=== PATIENT | female | born 2000 | race Two or more races ===

== ENCOUNTER 2024-04-15 15:45 | Inpatient (IN) | payer MEDICAID, SELFPAY ==
[2024-04-15] VITALS (9 sets, daily range): BP systolic 0–139; BP diastolic 0–75; PULSE 58–127; RESP 21; TEMP 36.6; O2SAT 98; BMI 25.4
[2024-04-15] MEDS: RINGERS LACTATED 1000 ML 1,000 ML 125 ML IV (16:10)
[2024-04-15] MEDS: MINERAL OIL 30 ML UDC TOP (16:22)
[2024-04-15] MEDS: LIDOCAINE HCL 1% 20 ML VIAL INFL (16:30)
[2024-04-15 16:32] LABS: Basophils % (Auto) 0 % (0-2.5); Eosinophils % (Auto) 0 % (0-10); Hematocrit 33.3 % (36.0-46.0); Immature Granulocytes % (Auto) 1 % (0-0); Immature Granulocytes Auto 0.06 Thou/mm3 (0.00-0.00); Lymphocytes # (Auto) 2.9 Thou/mm3 (1.0-4.8); Lymphocytes % (Auto) 23 % (10-50); Mean Corpuscular Hemoglobin 25.6 pg (25.0-35.0); Mean Corpuscular Volume 78 fL (80-100); Monocytes # (Auto) 0.7 Thou/mm3 (0.0-0.8); Monocytes % (Auto) 6 % (0-12); Neutrophils # (Auto) 8.8 Thou/mm3 (1.8-7.7); Neutrophils % (Auto) 70 % (37-80); Nucleated Red Blood Cell % 0 /100 WBC (0); Platelet Count 310 Thou/mm3 (140-440); RDW Standard Deviation 38.5 fL (36.4-46.3); Red Blood Count 4.29 Miln/mm3 (4.00-5.20); White Blood Count 12.5 Thou/mm3 (3.6-11.0)
[2024-04-15] MEDS: fentaNYL CIT INJ 50 mCg/ML AMP 2ML 100 MCG IV (16:33)
[2024-04-15] MEDS: OXYTOCIN in NS 20 units 20 UNIT/1,000 ML BAG 125 UNIT IV (16:35)
[2024-04-15] MEDS: BENZO/LANO/ALOE (Dermoplast) 60 GM CAN 1 SPRAY TOP (16:36)
--- NOTE | 2024-04-15 16:40 | PD.LDHP ---
Documentation for date of: 04/15/24 OB Labor/Induct. HPI History of Present Illness Chief complaint: 23 y/o 39w 3d presents to L&D in active labor at 7 cm : 2 Para: 1 Term pregnancies: 1 pregnancies: 1 Living children: 1 History of Abortions: Spontaneous and Elective: 0 History of Vaginal deliveries: 0 History of sections: No History of : No BLAYNE: 04/19/24 Gestational Age (weeks): 39 Gestational Age (days): 3 History of present illness: 23 y/o 39w 3d presents to L&D in active labor at 7/90/0 vertex, membranes intact, category 1 tracing, GBS is neg. has been uncomplicated. EFW 2900g Pt has a hx of nvdx1 History of Present Dating criteria: LMP confirmed by 1st trimester US Adequate Care: Yes Ultrasounds: normal 1st trimester US and normal mid trimester US Obstetrical complications: none Medical complications: none Labs Maternal Blood Type: A Pos Labs: Positive: Rubella Titre, Negative: RPR, Hepatitis B, HIV, Chlamydia, Gonorrhea and Group Beta Strep and Unknown: Covid-19 Review of Systems Review of Systems Systems Reviewed: All systems reviewed, normal except as documented Past Medical History Surgical History SURGICAL: Negative Section Meds Home Medications and Allergies Home Medications ?Medication ?Instructions ?Recorded ?Confirmed ?Type vit no.95-ferrous See Rx Instructions .Route .COMPLEX 04/15/24 04/15/24 History fumarate 28 mg-folic acid 800 mcg tablet () Allergies Allergy/AdvReac Type Severity Reaction Status Date / Time No Known Allergies Allergy Verified 04/15/24 16:50 OB Exam Physical Exam Vital signs: Pulse BP 93 111/53 L 04/15/24 16:40 04/15/24 16:40 Constitutional Constitutional: severe distress (Secondary to painful contractions) Routine HEENT Exam Head: Present normocephalic and atraumatic Eye: Present EOMI, PERRL and normal accommodation ENT: Present mucous membranes moist Routine Neck Exam Neck: Present supple, full ROM and trachea midline Routine Respiratory Exam Respiratory: Absent respiratory distress Routine Cardiovascular Exam Cardiovascular: Present RRR Routine Abdominal Exam Abdominal: Present soft Comments: Gravid uterus EFW 2900 g Routine Exam External: Present normal urethra appearance; Absent lesions Detailed Labor and Delivery Exam Dilation (cm): 7 Effacement (%): 90 Cervix position: mid station: 0 Consistency: soft Presentation: Vertex Membranes: intact Baseline heart rate: 140 monitor accelerations: 15x15 monitor decelerations: None penitentiary variability: Moderate (11-25) Contraction frequency (min): 2-3 Contraction duration (sec): 40-60 Contraction intensity: Strong Routine Extremities Exam Extremities: Present full ROM Routine Back/Spine/Pelvis Exam Back/Spine: Present full ROM Routine Skin Exam Skin: Present intact, dry and warm Routine Neurological Exam Neurological: Present alert, oriented X3 and CN II-XII intact Routine Psychiatric Exam Psychiatric: Present normal affect and normal thought process OB Results Labs 04/15/24 16:10 Labs: Short CBC 04/15/24 Range/Units 16:10 WBC 12.5 H (3.6-11.0) Thou/mm3 Hgb 11.0 L (12.0-16.0) g/dL Hct 33.3 L (36.0-46.0) % Plt Count 310 (140-440) Thou/mm3 OB Assessment & Plan Assessment and Plan (1) Normal labor: Status: Acute (2) with 39 completed weeks gestation: Status: Acute Additional Plan Induction method: none Plan: consult MD bah Additional Plan Comment: Routine admit orders Anticipate
--- NOTE | 2024-04-15 16:45 | OBDSUM_ITS ---
Data ([facility]) Data Hx Section: No Maternal Blood Type: B Pos Rubella Titre: Positive RPR: Non-reactive Labs: Negative: RPR, Hepatitis B, HIV, Chlamydia, Gonorrhea and Group Beta Strep and Unknown: Herpes Type 1 and Herpes Type 2 : 2 Para: 1 Term: 1 : 0 : 0 Delivery Data ([facility]) Labor Data Stimulated/Augmented: No Induction: No Method: AROM ROM Date: 04/15/24 ROM Time: 16:20 Rupture Type: AROM Amniotic Fluid: Clear Delivery Data EDC: 04/19/24 EDC calculated by:: LMP/early US confirmation Labor Onset Stage 1 Date: 04/15/24 Labor Onset Stage 1 Time: 10:00 Labor Onset Stage 2 Date: 04/15/24 Labor Onset Stage 2 Time: 16:13 Delivery Date: 04/15/24 Delivery Time: 16:27 Gestational age (weeks): 39 Gestational age (days): 3 Placenta Delivery Date: 04/15/24 Placenta Delivery Time: 16:29 Delivered by: Ling Kaur Delivery nurse: Lizzie Easton Brim [employer] Sewing Machine Operator at delivery: No Support person(s) at delivery: FOB Delivery Method Delivery: Vaginal Delivery Type: Spontaneous Presentation: Vertex Anesthesia Type Primary Anesthesia: None Delivery Room Medications Other Intrapartum Medications: No Post Delivery Medications N/A: No Placenta Placenta Delivery: Spontaneous Placenta Cultures Obtained: No Placenta Sent for Examination: No Cord Sample: Cord Blood Obtained Episiotomy Episiotomy: None Lacerations #1: Periurethral: Above the urethra Perineal repair Sutures used for repair: 4.0 Vicryl (SH) EBL Estimated blood loss (ml): 200 Umbilical Cord Umbilical Vessels: 3 Nuchal Cord: Not Applicable Body Cord: x1 Additional Procedures Patient came in at 7 cm in active labor and progressing very quickly to complete AROM performed at bedside and patient had an of a viable female infant. 's anterior shoulder delivered with gentle downward traction subsequent deliver the posterior shoulder and the body without complications. Infant placed on mother's abdomen. Vigorous cry upon delivery. Cord was clamped. Cut by CNM. Cord blood obtained. Three-vessel cord noted. Placenta expelled spontaneously and intact. Patient sustained a small periurethral laceration. Repaired using a 4-0 Vicryl on an SH suture. Perineum intact. Sponge and needle count correct. Excellent hemostasis achieved after vigorous fundal massage and removal of clots from the posterior fornix. EBL is 200. Mother and baby stable, skin to skin and bonding in LDR. [place] Data ([facility]) Data Infant Gender: Female Weight Grams: 2950 1 Minute Total: 9 5 Minute Total: 9
[2024-04-15 17:00] LABS: Syphilis Nonreactive (Nonreactive)
[2024-04-15 22:03] LABS: Basophils % (Auto) 0 % (0-2.5); Eosinophils % (Auto) 0 % (0-10); Immature Granulocytes % (Auto) 0 % (0-0); Immature Granulocytes Auto 0.06 Thou/mm3 (0.00-0.00); Lymphocytes # (Auto) 2.1 Thou/mm3 (1.0-4.8); Lymphocytes % (Auto) 14 % (10-50); Mean Corpuscular HGB Conc 34.2 g/dl (31.0-37.0); Mean Corpuscular Hemoglobin 26.5 pg (25.0-35.0); Mean Corpuscular Volume 77 fL (80-100); Monocytes # (Auto) 0.9 Thou/mm3 (0.0-0.8); Monocytes % (Auto) 6 % (0-12); Neutrophils # (Auto) 11.5 Thou/mm3 (1.8-7.7); Neutrophils % (Auto) 79 % (37-80); Nucleated Red Blood Cell % 0 /100 WBC (0); Platelet Count 257 Thou/mm3 (140-440); RDW Standard Deviation 39.2 fL (36.4-46.3); Red Blood Count 3.36 Miln/mm3 (4.00-5.20); White Blood Count 14.7 Thou/mm3 (3.6-11.0)
[2024-04-15 22:04] LABS: Hemoglobin 8.9 g/dL (12.0-16.0)
[2024-04-16] VITALS: BP 99/64; PULSE 80; RESP 21; TEMP 36.9; O2SAT 97
[2024-04-16 04:57] VITALS: BP 97/69; PULSE 71; RESP 16; TEMP 36.7; O2SAT 99
--- NOTE | 2024-04-16 06:57 | PD.LDDS ---
DS: Providers Provider Date of admission: 04/15/24 16:38 Primary care physician: Physician No Primary/Family Admitting Provider: Ling Kaur CNM Attending Provider on Admission: Ling Kaur CNM Consults: 04/15/24 16:52 Referral Routine Comment: Attending Provider on DC: Ling Kaur CNM Discharging Provider: Ling Kaur CNM Anticipated date of discharge: 04/16/24 DS: Diagnosis Discharge Diagnosis (1) Normal spontaneous vaginal delivery: Status: Acute (2) Encounter for care of lactating mother: Status: Acute (3) with 39 completed weeks gestation: Status: Acute (4) Normal labor: Status: Acute Problem List Completed Was Problem List Reviewed/Reconciled?: Yes Summary/Hosp Course Brief History: 23 y/o 39w 3d presents to L&D in active labor at 7/90/0 vertex, membranes intact, category 1 tracing, GBS is neg. has been uncomplicated. EFW 2900g Pt has a hx of nvdx1. 04/15/24: Patient came in at 7 cm in active labor and progressing very quickly to complete AROM performed at bedside and patient had an of a viable female infant. 's anterior shoulder delivered with gentle downward traction subsequent deliver the posterior shoulder and the body without complications. placed on mother's abdomen. Vigorous cry upon delivery. Cord was clamped. Cut by JORDI. Cord blood obtained. Three-vessel cord noted. Placenta expelled spontaneously and intact. Patient sustained a small periurethral laceration. Repaired using a 4-0 Vicryl on an SH suture. Perineum intact. Sponge and needle count correct. Excellent hemostasis achieved after vigorous fundal massage and removal of clots from the posterior fornix. EBL is 200. Mother and baby stable, skin to skin and bonding in LDR. 04/16/24: day 1 patient is stable and afebrile. Doing well and . Breast-feeding . No complaints. Uterus is nontender fundus firm minimal lochia. Discharge instructions given. Patient to follow-up with Ling Kuar CNM in 3 weeks Peripartum Data Delivery Method: Normal Vaginal Delivery Episiotomy Description: None Laceration Description: yes and see Delivery Summary complications: none [place] 1: Gender: Female Disposition of : home Status at Discharge Cognitive/behavioral status at discharge: Alert and oriented x 3 Functional status at discharge: independent ambulation Overall status at discharge: patient is progressing back to baseline Time Spent with Patient Time attestation: Total time spent providing and/or coordinating discharge services: Time spent: Greater than 30 minutes Exam Vital Signs Pulse BP 85 107/51 L 04/15/24 16:55 04/15/24 16:55 Constitutional Constitutional: no acute distress Routine HEENT Exam Head: Present normocephalic and atraumatic Eye: Present EOMI, PERRL and normal accommodation ENT: Present mucous membranes moist Routine Neck Exam Neck: Present supple, full ROM and trachea midline Routine Respiratory Exam Respiratory: Present chest non-tender, lungs clear, normal breath sounds and no resp distress Routine Cardiovascular Exam Cardiovascular: Present RRR Routine Abdominal Exam Abdominal: Present soft, normoactive bowel sounds and tenderness; Absent distended Routine Exam Patient deferred: external exam Routine Extremities Exam Extremities: Present full ROM, pulses intact and normal capillary refill; Absent calf tenderness or tenderness Routine Back/Spine/Pelvis Exam Back/Spine: Present full ROM Routine Skin Exam Skin: Present intact, dry and warm Routine Neurological Exam Neurological: Present alert, oriented X3 and CN II-XII intact Routine Psychiatric Exam Psychiatric: Present normal affect and normal thought process Discharge Plan Plan Patient Disposition: HOME (Self Care) Patient condition on transfer: Stable Prescriptions/Referrals Prescriptions/Med Rec: New ibuprofen 800 mg tablet 800 mg PO Q6H MDD 4 PRN (Reason: pain) Qty: 120 0RF docusate sodium [Colace] 100 mg capsule 100 mg PO BID Qty: 60 0RF lanolin 50 % ointment 1 applic topical TID PRN (Reason: skin irritation) Qty: 15 0RF Continued PNV cmb#95-ferrous fumarate-FA [] 28 mg iron- 800 mcg tablet See Rx Instructions .ROUTE .COMPLEX Rx Instructions: take as instructed Referrals: No Primary/Family,Physician [Primary Care Provider] - Patient/Caregiver Discharge Instructions Meds to Beds: No Discharge Activity: activity as tolerated Other Discharge Activity Instructions:: Follow-up with Ling Kaur CNM in 3 weeks Education Materials: After a Vaginal , After Delivery [place] Concerns, : Caring for Yourself Print Language: Ukrainian Stand Alone Forms: Mel Award Info., Patient Portal Info Letter Discharge Order Discharge Orders: Discharge (Routine); Ordered 04/16/24 Ordered By: Ling Kaur Planned Discharge Date 04/16/24
[2024-04-16 08:05] VITALS: BP 101/63; PULSE 63; RESP 18; TEMP 36.7; O2SAT 99
[2024-04-16 11:45] VITALS: BP 98/58; PULSE 62; RESP 18; TEMP 36.7; O2SAT 99
[2024-04-16 15:35] VITALS: BP 102/62; PULSE 62; RESP 17; TEMP 36.8; O2SAT 99
== END 2024-04-16 17:18 | disposition home or self-care (01) | DRG 560 ==
LOC: S4SX 17:11 → S4NX 18:50 → S4SX 04-19 08:41 → S4NX 04-19 08:41
PROVIDERS: Admitting Provider Nurse Practitioner Women's Health; Visit Provider Nurse Practitioner Women's Health
DX: O69.82X0 Labor and delivery complicated by other cord entanglement, without compression, not applicable or unspecified (principal); Z37.0 Single live birth; Z3A.39 39 weeks gestation of pregnancy; O71.82 Other specified trauma to perineum and vulva
CPT/HCPCS: 36415; 59409; 59899; 85025; 86780; 86850; 86900; 86901; G0378; J2590; J3010; J3490; J7120; A9270